=== PATIENT | female | born 1950 | race Caucasian/White ===

== ENCOUNTER → 2018-04-11 | Outpatient (CLI) | payer MEDICARE ==
[2018-04-11 15:18] LABS: BASO # 0.1 (0.0-0.2); BASO % 1.1 % (0.0-2.0); EOS # 0.1 (0.0-0.7); EOS % 1.8 % (0-4.0); GRAN # 4.2 (1.4-6.5); GRAN % 58.2 % (42.2-75.2); HEMATOCRIT 40.2 % (37.0-47.0); HEMOGLOBIN 13.7 g/dl (12.5-16.0); LYMPH # 2.3 (1.2-3.4); LYMPH % 32.5 % (20.0-51.0); MEAN CELL VOLUME 91 fl (80.0-100.0); MEAN CORPUSCULAR HEMOGLOBIN 31 pg (27.0-31.0); MEAN CORPUSCULAR HGB CONC 34 g/dl (33.0-37.0); MEAN PLATELET VOLUME 10.8 fl (7.4-10.4); MONO # 0.4 (0.1-0.6); PLATELET COUNT 208 K/mm3 (130-400); RED BLOOD COUNT 4.41 M/mm3 (4.10-5.30); REDCELL DISTRIBUTION WIDTH-CV 12.5 % (11.5-14.5)
[2018-04-11 15:26] LABS: ALBUMIN 3.9 gm/dL (3.5-5.0); BILIRUBIN,TOTAL 0.5 mg/dL (0.0-1.0); CALCIUM 9.2 mg/dL (8.4-10.2); CREATININE, serum 0.8 mg/dL (0.52-1.25); POTASSIUM 4.7 mmol/L (3.4-5.0)
[2018-04-11 15:56] LABS: TSH w REFLEX 0.111 uIU/mL (0.465-4.680)
== END ==
LOC: COL.LAB 14:24
PROVIDERS: Family Medicine
DX: E11.9 Type 2 diabetes mellitus without complications (principal); E03.9 Hypothyroidism, unspecified

== ENCOUNTER → 2018-04-17 | Outpatient (CLI) | payer MEDICARE | LOC: COL.RAD 10:49 | DX: K76.0 Fatty (change of) liver, not elsewhere classified (principal); R11.10 Vomiting, unspecified; R74.8 Abnormal levels of other serum enzymes ==

== ENCOUNTER → 2018-04-28 | Outpatient (CLI) | payer MEDICARE ==
[2018-04-28 14:44] LABS: BASO # 0.1 (0.0-0.2); BASO % 1.2 % (0.0-2.0); EOS # 0.1 (0.0-0.7); EOS % 1.2 % (0-4.0); GRAN # 3.5 (1.4-6.5); GRAN % 61.7 % (42.2-75.2); HEMATOCRIT 39.5 % (37.0-47.0); HEMOGLOBIN 13.4 g/dl (12.5-16.0); LYMPH # 1.7 (1.2-3.4); LYMPH % 30.5 % (20.0-51.0); MEAN CELL VOLUME 91 fl (80.0-100.0); MEAN CORPUSCULAR HEMOGLOBIN 31 pg (27.0-31.0); MEAN CORPUSCULAR HGB CONC 34 g/dl (33.0-37.0); MEAN PLATELET VOLUME 11.1 fl (7.4-10.4); MONO # 0.3 (0.1-0.6); MONO % 5.2 % (1.7-9.3); PLATELET COUNT 160 K/mm3 (130-400); RED BLOOD COUNT 4.33 M/mm3 (4.10-5.30); REDCELL DISTRIBUTION WIDTH-CV 12.3 % (11.5-14.5)
[2018-04-28 14:45] LABS: ALBUMIN 3.7 gm/dL (3.5-5.0); BILIRUBIN,TOTAL 0.5 mg/dL (0.0-1.0); CALCIUM 8.8 mg/dL (8.4-10.2); CREATININE, serum 0.76 mg/dL (0.52-1.25); POTASSIUM 4.7 mmol/L (3.4-5.0); TOTAL PROTEIN 6.8 gm/dL (6.4-8.2)
== END ==
LOC: SUN.DIA → COL.LAB 09:44 → SUN.DIA 05-09 10:36
PROVIDERS: Family Medicine
DX: R10.9 Unspecified abdominal pain (principal)

== ENCOUNTER → 2018-05-09 | Outpatient (CLI) | payer MEDICARE | LOC: SUN.DIA 15:06 | DX: E11.9 Type 2 diabetes mellitus without complications (principal); E66.9 Obesity, unspecified | CPT/HCPCS: G0108 ==

== ENCOUNTER → 2018-06-07 | Outpatient (CLI) | payer MEDICARE | LOC: SUN.DIA 12:37 | DX: E11.9 Type 2 diabetes mellitus without complications (principal); E66.9 Obesity, unspecified ==

== ENCOUNTER → 2018-08-31 | Outpatient (CLI) | payer MEDICARE ==
[2018-08-31 17:01] LABS: BASO # 0.1 (0.0-0.2); EOS # 0.1 (0.0-0.7); EOS % 0.6 % (0-4.0); GRAN # 5.6 (1.4-6.5); GRAN % 66.6 % (42.2-75.2); HEMATOCRIT 39.1 % (37.0-47.0); HEMOGLOBIN 12.4 g/dl (12.5-16.0); LYMPH # 2.2 (1.2-3.4); LYMPH % 25.7 % (20.0-51.0); MEAN CELL VOLUME 94 fl (80.0-100.0); MEAN CORPUSCULAR HEMOGLOBIN 30 pg (27.0-31.0); MEAN CORPUSCULAR HGB CONC 32 g/dl (33.0-37.0); MEAN PLATELET VOLUME 10.6 fl (7.4-10.4); MONO # 0.5 (0.1-0.6); MONO % 5.6 % (1.7-9.3); PLATELET COUNT 397 K/mm3 (130-400); RED BLOOD COUNT 4.15 M/mm3 (4.10-5.30)
== END ==
LOC: ZCOL.LAB 16:48
PROVIDERS: Family Medicine
DX: L03.116 Cellulitis of left lower limb (principal)

== ENCOUNTER → 2019-06-08 | Outpatient (CLI) | payer MEDICARE | LOC: COL.LAB 13:52 | DX: R19.7 Diarrhea, unspecified (principal) ==

== ENCOUNTER → 2019-08-10 | Outpatient (CLI) | payer MEDICARE | LOC: COL.VAS 12:46 | DX: M79.89 Other specified soft tissue disorders (principal) ==